=== PATIENT | female | born 1975 | race Caucasian/White ===

== ENCOUNTER 2017-05-24 09:30 | Emergency (ER) | payer MEDICAID ==
[~2017-05-24] VITALS: Ht 172.7 cm; Wt 147.5 kg
[2017-05-24 09:42] VITALS: BP 153/89
[2017-05-24] MEDS ORDERED: CEPH500C5 PO (10:36)
[2017-05-24] MEDS ORDERED: ALBU8HFA PO (10:36)
== END 2017-05-24 11:08 | disposition home or self-care (01) ==
LOC: ER 09:31
DX: J20.9 Acute bronchitis, unspecified (principal); L01.00 Impetigo, unspecified; F17.200 Nicotine dependence, unspecified, uncomplicated; Z59.0 Homelessness; Z88.0 Allergy status to penicillin; Z88.2 Allergy status to sulfonamides; Z88.8 Allergy status to other drugs, medicaments and biological substances; Z79.899 Other long term (current) drug therapy
CPT/HCPCS: 99283